=== PATIENT | female | born 1930 | race Caucasian/White ===

== ENCOUNTER 2016-04-29 13:16 | Emergency (ER) | payer MEDICARE, BC ==
[2016-04-29 13:47] VITALS: TEMP 97.4
--- NOTE | 2016-04-29 14:21 | ED ---
Extremity Problem HPI - General Chief complaint: Extremity Problem,Nontraumatic Stated complaint: Arm/Back Pain Time Seen by Provider: 04/29/16 13:58 Source: patient, RN notes reviewed Mode of arrival: ambulatory Limitations: no limitations - History of Present Illness Initial comments: 85-year-old female presents emergency Department with chief complaint of neck, shoulder and back pain. Patient states has been present for 1 month getting worse. Patient states that she saw her primary care physician yesterday who told her was arthritis and order an MRI. Patient had x-rays of the shoulder never or neck. Patient states it's worse when she turns or moves her shoulders. Patient states that she does not believe her physician and believes that it is her heart. Patient's had a history of bypass, corner stents. Patient denies chest pain denies shortness of breath. Patient denies any nausea , vomiting, fever, chills. Patient denies any trauma. - Related Data Home Medications Medication Instructions Recorded Confirmed Carvedilol [Coreg] 12.5 mg PO BID 04/29/16 04/29/16 Isosorbide Mononitrate ER [Imdur] 30 mg PO DAILY 04/29/16 04/29/16 Omeprazole [PriLOSEC] 20 mg PO DAILY 04/29/16 04/29/16 amLODIPine BESYLATE [Norvasc] 10 mg PO DAILY 04/29/16 04/29/16 traMADol HCL [Ultram] 50 mg PO BID PRN 04/29/16 04/29/16 Allergies Allergy/AdvReac Type Severity Reaction Status Date / Time No Known Allergies Allergy Verified 04/29/16 13:48 Review of Systems ROS Statement: Those systems with pertinent positive or pertinent negative responses have been documented in the HPI. ROS Other: All systems not noted in ROS Statement are negative. Past Medical History Past Medical History: Coronary Artery Disease (CAD), Hypertension, Osteoarthritis (OA) History of Any Multi-Drug Resistant Organisms: None Reported Past Surgical History: Coronary Bypass/CABG, Heart Catheterization With Stent Past Psychological History: No Psychological Hx Reported Smoking Status: Never smoker Past Alcohol Use History: None Reported Past Drug Use History: None Reported General Exam Limitations: no limitations General appearance: alert, in no apparent distress Head exam: Present: atraumatic, normocephalic, normal inspection ENT exam: Present: normal oropharynx, mucous membranes moist Neck exam: Present: normal inspection, tenderness (Tenderness over the trapezius left greater than right), full ROM (Discomfort with range of motion). Absent: meningismus, lymphadenopathy Respiratory exam: Present: normal lung sounds bilaterally, other ( sternal scar) . Absent: respiratory distress, wheezes, rales, rhonchi, stridor, chest wall tenderness Cardiovascular Exam: Present: regular rate, normal rhythm, normal heart sounds. Absent: systolic murmur, diastolic murmur, rubs, gallop, clicks GI/Abdominal exam: Present: soft, normal bowel sounds. Absent: distended, tenderness, guarding, rebound, rigid Extremities exam: Present: other (Upper extremity strength equal bilaterally 5/ 5 neurovascular intact there is pain with range of motion in bilateral shoulders ) Back exam: Present: full ROM. Absent: tenderness Course Vital Signs 04/29/16 13:41 Temperature 97.4 F L Pulse Rate 66 Respiratory 16 Rate Blood Pressure 198/85 O2 Sat by Pulse 97 Oximetry Medical Decision Making - Medical Decision Making 85-year-old female presented to emergency department for neck and back pain. This has been ongoing for 1 month. Patient saw primary care physician for in which she was diagnosed with arthritis. X-ray of the cervical spine shows moderate to severe degenerative changes. Patient was concerned about cardiac issues though EKG unchanged, troponin is negative. Return parameters discussed. Close follow-up was discussed - Lab Data Result diagrams: 04/29/16 14:23 04/29/16 14:23 Lab Results 04/29/16 04/29/16 04/29/16 Range/Units 14:23 14:23 14:23 WBC 6.8 (3.8-10.6) k/uL RBC 4.25 (3.80-5.40) m/uL Hgb 13.1 (11.4-16.0) gm/dL Hct 39.0 (34.0-46.0) % MCV 91.7 (80.0-100.0) fL MCH 30.8 (25.0-35.0) pg MCHC 33.6 (31.0-37.0) g/dL RDW 12.8 (11.5-15.5) % Plt Count 271 (150-450) k/uL Neutrophils % 63 % Lymphocytes % 22 % Monocytes % 8 % Eosinophils % 3 % Basophils % 1 % Neutrophils # 4.3 (1.3-7.7) k/uL Lymphocytes # 1.5 (1.0-4.8) k/uL Monocytes # 0.5 (0-1.0) k/uL Eosinophils # 0.2 (0-0.7) k/uL Basophils # 0.0 (0-0.2) k/uL PT (9.0-12.0) sec INR (<1.1) APTT (22.0-30.0) sec Sodium 142 (137-145) mmol/L Potassium 4.5 (3.5-5.1) mmol/L Chloride 106 (98-107) mmol/L Carbon Dioxide 22 (22-30) mmol/L Anion Gap 14 mmol/L BUN 17 (7-17) mg/dL Creatinine 0.90 (0.52-1.04) mg/dL Est GFR (MDRD) Af Amer >60 (>60 ml/min/1.73 sqM) Est GFR (MDRD) Non-Af 59 (>60 ml/min/1.73 sqM) Glucose 97 (74-99) mg/dL Calcium 9.2 (8.4-10.2) mg/dL Magnesium 2.1 (1.6-2.3) mg/dL Total Bilirubin 0.6 (0.2-1.3) mg/dL AST 21 (14-36) U/L ALT 33 (9-52) U/L Alkaline Phosphatase 95 (38-126) U/L Total Creatine Kinase 92 (30-135) U/L CK-MB (CK-2) 1.5 (0.0-2.4) ng/mL CK-MB (CK-2) Rel Index 1.6 Troponin I <0.012 (0.000-0.034) ng/mL Total Protein 7.3 (6.3-8.2) g/dL Albumin 4.1 (3.5-5.0) g/dL 04/29/16 Range/Units 14:23 WBC (3.8-10.6) k/uL RBC (3.80-5.40) m/uL Hgb (11.4-16.0) gm/dL Hct (34.0-46.0) % MCV (80.0-100.0) fL MCH (25.0-35.0) pg MCHC (31.0-37.0) g/dL RDW (11.5-15.5) % Plt Count (150-450) k/uL Neutrophils % % Lymphocytes % % Monocytes % % Eosinophils % % Basophils % % Neutrophils # (1.3-7.7) k/uL Lymphocytes # (1.0-4.8) k/uL Monocytes # (0-1.0) k/uL Eosinophils # (0-0.7) k/uL Basophils # (0-0.2) k/uL PT 10.8 (9.0-12.0) sec INR 1.1 (<1.1) APTT 19.8 L (22.0-30.0) sec Sodium (137-145) mmol/L Potassium (3.5-5.1) mmol/L Chloride (98-107) mmol/L Carbon Dioxide (22-30) mmol/L Anion Gap mmol/L BUN (7-17) mg/dL Creatinine (0.52-1.04) mg/dL Est GFR (MDRD) Af Amer (>60 ml/min/1.73 sqM) Est GFR (MDRD) Non-Af (>60 ml/min/1.73 sqM) Glucose (74-99) mg/dL Calcium (8.4-10.2) mg/dL Magnesium (1.6-2.3) mg/dL Total Bilirubin (0.2-1.3) mg/dL AST (14-36) U/L ALT (9-52) U/L Alkaline Phosphatase (38-126) U/L Total Creatine Kinase (30-135) U/L CK-MB (CK-2) (0.0-2.4) ng/mL CK-MB (CK-2) Rel Index Troponin I (0.000-0.034) ng/mL Total Protein (6.3-8.2) g/dL Albumin (3.5-5.0) g/dL 04/29/16 15:24 EKG performed at 13:56 sinus rhythm with first-degree AV block, left axis deviation, rate of 66, [place] interval 224, QRS duration 92, QT/QTC 430/450 Disposition Clinical Impression: Neck pain, Musculoskeletal pain Disposition: HOME SELF-CARE Condition: Stable Instructions: Neck Pain (ED) Additional Instructions: Please return to the Emergency Department if symptoms worsen or any other concerns. Time of Disposition: 15:26
[2016-04-29 14:34] LABS: Basophils % (A) 1 %; CH 31.6; CHCM 34.6; Eosinophils # (A) 0.2 k/uL (0-0.7); Eosinophils % (A) 3 %; HDW 2.51; HGB 13.1 gm/dL (11.4-16.0); Luc # (Auto) 0.23; Luc % (Auto) 3; Lymphocytes # (A) 1.5 k/uL (1.0-4.8); Lymphocytes % (A) 22 %; MCH 30.8 pg (25.0-35.0); MCHC 33.6 g/dL (31.0-37.0); MCV 91.7 fL (80.0-100.0); Mean Platelet Volume 7.9; Monocytes # (A) 0.5 k/uL (0-1.0); Monocytes % (A) 8 %; Neutrophils # (A) 4.3 k/uL (1.3-7.7); Neutrophils % (A) 63 %; RBC 4.25 m/uL (3.80-5.40); RDW 12.8 % (11.5-15.5); WBC 6.8 k/uL (3.8-10.6); WBC (Perox) 7.06
[2016-04-29 14:45] LABS: INR 1.1 (<1.1); Prothrombin Time 10.8 sec (9.0-12.0)
[2016-04-29 14:50] LABS: ALT 33 U/L (9-52); AST 21 U/L (14-36); Alkaline Phosphatase 95 U/L (38-126); Anion Gap 14 mmol/L; Blood Urea Nitrogen 17 mg/dL (7-17); Calcium 9.2 mg/dL (8.4-10.2); Carbon Dioxide 22 mmol/L (22-30); Chloride 106 mmol/L (98-107); Glucose 97 mg/dL (74-99); Magnesium 2.1 mg/dL (1.6-2.3); Non-African American GFR(MDRD) 59 (>60 ml/min/1.73 sqM); Potassium 4.5 mmol/L (3.5-5.1); Sodium 142 mmol/L (137-145); Total Bilirubin 0.6 mg/dL (0.2-1.3); Total Protein 7.3 g/dL (6.3-8.2)
--- NOTE | 2016-04-29 14:53 | XR ---
EXAMINATION TYPE: XR cervical spine comp DATE OF EXAM: 04/29/2016 2:46 PM CLINICAL HISTORY: pain COMPARISON: NONE TECHNIQUE: Frontal, lateral, oblique, swimmers, and open mouth view of the cervical spine are obtaine d. FINDINGS: The cervical spine is visualized in its entirety from C1 thru the top of T1 level. It is s atisfactory in alignment without evidence of acute fracture or dislocation. The pre-vertebral soft t issue appears within normal limits. Disc spaces are well preserved. The C1-C2 articulation is unremar kable on the open mouth view. The oblique images are within normal limits. Moderate to severe degene rative disc space narrowing is seen throughout. IMPRESSION: No acute fracture or dislocation is seen in the cervical spine.ICD 10 NO FRACTURE, INITI AL EVALUATION
[2016-04-29 14:55] LABS: Creatine Kinase 92 U/L (30-135)
--- NOTE | 2016-04-29 14:56 | XR ---
EXAMINATION TYPE: XR chest 2V DATE OF EXAM: 04/29/2016 2:46 PM COMPARISON: 06/23/2013 HISTORY: Shortness of breath TECHNIQUE: Frontal and lateral views of the chest are obtained. FINDINGS: Scattered senescent parenchymal changes noted. Hyperinflation compatible with COPD. No evidence for infiltrate. No evidence for atelectasis. Heart size is stable. Mediastinal structures are stable and grossly unremarkable. No evidence for hilar prominence. Degenerative changes dorsal spine. IMPRESSION: 1. No evidence for acute pulmonary disease.
[2016-04-29 14:58] LABS: Partial Thromboplastin Time 19.8 sec (22.0-30.0)
[2016-04-29 15:08] LABS: Creatine Kinase MB 1.5 ng/mL (0.0-2.4); Troponin I <0.012 ng/mL (0.000-0.034)
[2016-04-29 15:33] VITALS: BP 183/77; PULSE 62; RESP 14
== END 2016-04-29 15:38 | disposition home or self-care (01) ==
LOC: EC 13:16
DX: M54.2 Cervicalgia (principal); M54.9 Dorsalgia, unspecified; M25.512 Pain in left shoulder; M25.511 Pain in right shoulder; I10 Essential (primary) hypertension; M19.90 Unspecified osteoarthritis, unspecified site; I25.10 Atherosclerotic heart disease of native coronary artery without angina pectoris; Z95.5 Presence of coronary angioplasty implant and graft; Z95.1 Presence of aortocoronary bypass graft; Z79.899 Other long term (current) drug therapy
CPT/HCPCS: 36415; 71020; 72050; 80053; 82550; 82553; 83735; 84484; 85025; 85610; 85730; 93005; 99284

== ENCOUNTER 2016-12-13 10:20 | Inpatient (IN) | payer MEDICARE, BC ==
[2016-12-13] MEDS ORDERED: SODIUM CHLORIDE 0.9% 500 ML IV STA (10:42)
[2016-12-13] MEDS ORDERED: SODIUM CHLORIDE 0.9% 1,000 ML IV STA (10:42)
[2016-12-13] MEDS ORDERED: HYDROmorphone 1 MG/ML 1 ML SYRINGE IVP STA (10:42)
[2016-12-13] MEDS ORDERED: ACETAMINOPHEN TAB 500 MG TAB PO STA (10:44)
[2016-12-13] MEDS ORDERED: LEVOFLOXACIN 750MG-D5W PMX 750 MG in DEXTROSE/WATER 1 150ML.BAG IVPB STA (10:58)
--- NOTE | 2016-12-13 11:14 | ED ---
General Adult HPI - General Chief complaint: Back Pain/Injury Stated complaint: Back Pain Time Seen by Provider: 12/13/16 10:23 Source: patient, EMS Mode of arrival: EMS Limitations: no limitations - History of Present Illness Initial comments: This 86-year-old white female presents with a complaint of some pain throughout her back and neck region. She states that it started yesterday. She also feels very weak. She essentially was unable to stand or walk today and is brought in via EMS. She denies any fevers at home but does have a temperature in the emergency department. She relates a recent history over this past month of having strep throat as well as a kidney infection. She just got off of cipro approximately one week ago after a 10 day course for the kidney/bladder infection. She states that she has taken an occasional aspirin for the pain but denies any other pain medications. She denies any frequency urgency or dysuria. She denies any abdominal pain. There is no shortness of breath or chest pain. She does relate having an occasional cough which is nonproductive. No other complaints or modifying factors. - Related Data Home Medications Medication Instructions Recorded Confirmed Carvedilol [Coreg] 12.5 mg PO BID 04/29/16 12/13/16 Isosorbide Mononitrate ER [Imdur] 30 mg PO DAILY 04/29/16 12/13/16 Omeprazole [PriLOSEC] 20 mg PO BID 04/29/16 12/13/16 amLODIPine BESYLATE [Norvasc] 10 mg PO DAILY 04/29/16 12/13/16 Aspirin EC [Ecotrin Low Dose] 81 mg PO DAILY 12/13/16 12/13/16 Clopidogrel [Plavix] 75 mg PO DAILY 12/13/16 12/13/16 Ezetimibe [Zetia] 10 mg PO DAILY 12/13/16 12/13/16 Lisinopril [Prinivil] 10 mg PO BID 12/13/16 12/13/16 Allergies Allergy/AdvReac Type Severity Reaction Status Date / Time sulfamethoxazole Allergy Rash/Hives Verified 12/13/16 10:31 [From Bactrim] trimethoprim [From Bactrim] Allergy Rash/Hives Verified 12/13/16 10:31 amoxicillin [From Augmentin] AdvReac Nausea & Verified 12/13/16 10:31 Vomiting & Diarrhea clavulanic acid AdvReac Nausea & Verified 12/13/16 10:31 [From Augmentin] Vomiting & Diarrhea Review of Systems ROS Statement: Those systems with pertinent positive or pertinent negative responses have been documented in the HPI. ROS Other: All systems not noted in ROS Statement are negative. Past Medical History Past Medical History: Coronary Artery Disease (CAD), Hypertension, Osteoarthritis (OA) Additional Past Medical History / Comment(s): uti History of Any Multi-Drug Resistant Organisms: None Reported Past Surgical History: Coronary Bypass/CABG, Heart Catheterization With Stent Additional Past Surgical History / Comment(s): femoral popliteal bypass both legs Past Psychological History: No Psychological Hx Reported Smoking Status: Never smoker Past Alcohol Use History: None Reported Past Drug Use History: None Reported General Exam - General Exam Comments Initial Comments: GENERAL: The patient is well nourished and well hydrated. VITAL SIGNS: Heart rate, blood pressure, respiratory rate reviewed as recorded in nurse's notes. EYES: Pupils are round and reactive. Extraocular movements are intact. No conjunctival / lid redness or swelling. ENT: No external evidence of injury, swelling, or ecchymosis. Airway is patent. Throat is clear. NECK: There is mild tenderness to the paracervical musculature. She has some minimal pain with range of motion of neck. No meningeal signs. No swelling or evidence of injury. No subcutaneous emphysema. Trachea is midline. No thyroid mass. HEART: Regular rate and rhythm. Good peripheral pulses. LUNGS/CHEST: Breath sounds clear and equal bilaterally. No rales, rhonchi, or wheezes. No ecchymosis, subcutaneous emphysema, or tenderness. ABDOMEN: Abdomen soft without tenderness. No palpable masses or organomegaly. No peritoneal signs. No abdominal wall swelling or ecchymosis. EXTREMITIES: No extremity tenderness. Normal muscle tone and function. There is some mild tenderness throughout the thoracic and lumbar para musculature. NEUROLOGIC: Sensation is grossly intact. Cranial nerve exam reveals face is symmetrical, tongue is midline, speech is clear. SKIN: No abrasions or ecchymosis is noted. No induration or masses noted. PSYCHIATRIC: Alert and oriented. Appropriate behavior and judgment. Limitations: no limitations Course Vital Signs 12/13/16 12/13/16 12/13/16 10:23 11:23 12:16 Temperature 100.8 F H 100.1 F H Pulse Rate 89 83 75 Respiratory 20 17 17 Rate Blood Pressure 159/115 196/81 135/60 O2 Sat by Pulse 92 L 95 95 Oximetry Medical Decision Making - Medical Decision Making The patient was seen and examined. All diagnostics were reviewed. An IV is started and she does receive 0.5 mg of Dilaudid for pain. She also receives Tylenol for the fever as well as Levaquin empirically. The EKG shows a normal sinus rhythm with a first-degree AV block. There is no acute ST T-wave changes other than some mild T-wave abnormalities in leads 3 and aVF. The [place] interval is 216, QRS duration is 94, and QTC intervals 451. She received some fluid hydration. The chest x-ray did not show any evidence of pneumonia or acute process. The laboratory is reviewed and it does appear that she has a leukocytosis. Her urine was negative for a urinary tract infection. The possibility of still having a pyelonephritis certainly is likely. She also may have a degree of a bronchitis. Nevertheless, she is significantly weak to the point that she cannot ambulate and it is felt as though she would require admission to the hospital. She is agreeable. Case is discussed with internal medicine and they're agreeable to admission. - Lab Data Result diagrams: 12/13/16 10:55 12/13/16 10:55 Lab Results 12/13/16 12/13/16 12/13/16 Range/Units 10:55 10:55 10:55 WBC 13.4 H (3.8-10.6) k/uL RBC 4.24 (3.80-5.40) m/uL Hgb 13.4 (11.4-16.0) gm/dL Hct 38.5 (34.0-46.0) % MCV 90.9 (80.0-100.0) fL MCH 31.5 (25.0-35.0) pg MCHC 34.7 (31.0-37.0) g/dL RDW 13.4 (11.5-15.5) % Plt Count 283 (150-450) k/uL Neutrophils % 77 % Lymphocytes % 10 % Monocytes % 9 % Eosinophils % 0 % Basophils % 1 % Neutrophils # 10.2 H (1.3-7.7) k/uL Lymphocytes # 1.3 (1.0-4.8) k/uL Monocytes # 1.2 H (0-1.0) k/uL Eosinophils # 0.0 (0-0.7) k/uL Basophils # 0.1 (0-0.2) k/uL PT (9.0-12.0) sec INR (<1.2) APTT (22.0-30.0) sec Sodium 138 (137-145) mmol/L Potassium 3.8 (3.5-5.1) mmol/L Chloride 106 (98-107) mmol/L Carbon Dioxide 21 L (22-30) mmol/L Anion Gap 11 mmol/L BUN 15 (7-17) mg/dL Creatinine 0.80 (0.52-1.04) mg/dL Est GFR (MDRD) Af Amer >60 (>60 ml/min/1.73 sqM) Est GFR (MDRD) Non-Af >60 (>60 ml/min/1.73 sqM) Glucose 161 H (74-99) mg/dL Calcium 9.2 (8.4-10.2) mg/dL Total Bilirubin 0.9 (0.2-1.3) mg/dL AST 16 (14-36) U/L ALT 24 (9-52) U/L Alkaline Phosphatase 92 (38-126) U/L Total Creatine Kinase 118 (30-135) U/L CK-MB (CK-2) 0.7 (0.0-2.4) ng/mL CK-MB (CK-2) Rel Index 0.6 Troponin I <0.012 (0.000-0.034) ng/mL Total Protein 7.1 (6.3-8.2) g/dL Albumin 4.0 (3.5-5.0) g/dL Urine Color Urine Appearance (Clear) Urine pH (5.0-8.0) Ur Specific [place] (1.001-1.035) Urine Protein (Negative) Urine Glucose (UA) (Negative) Urine Ketones (Negative) Urine Blood (Negative) Urine Nitrite (Negative) Urine Bilirubin (Negative) Urine Urobilinogen (<2.0) mg/dL Ur Leukocyte Esterase (Negative) Urine RBC (0-5) /hpf Urine WBC (0-5) /hpf Ur Squamous Epith Cells (0-4) /hpf Urine Mucus (None) /hpf 12/13/16 12/13/16 Range/Units 10:55 11:43 WBC (3.8-10.6) k/uL RBC (3.80-5.40) m/uL Hgb (11.4-16.0) gm/dL Hct (34.0-46.0) % MCV (80.0-100.0) fL MCH (25.0-35.0) pg MCHC (31.0-37.0) g/dL RDW (11.5-15.5) % Plt Count (150-450) k/uL Neutrophils % % Lymphocytes % % Monocytes % % Eosinophils % % Basophils % % Neutrophils # (1.3-7.7) k/uL Lymphocytes # (1.0-4.8) k/uL Monocytes # (0-1.0) k/uL Eosinophils # (0-0.7) k/uL Basophils # (0-0.2) k/uL PT 11.1 (9.0-12.0) sec INR 1.1 (<1.2) APTT 24.1 (22.0-30.0) sec Sodium (137-145) mmol/L Potassium (3.5-5.1) mmol/L Chloride (98-107) mmol/L Carbon Dioxide (22-30) mmol/L Anion Gap mmol/L BUN (7-17) mg/dL Creatinine (0.52-1.04) mg/dL Est GFR (MDRD) Af Amer (>60 ml/min/1.73 sqM) Est GFR (MDRD) Non-Af (>60 ml/min/1.73 sqM) Glucose (74-99) mg/dL Calcium (8.4-10.2) mg/dL Total Bilirubin (0.2-1.3) mg/dL AST (14-36) U/L ALT (9-52) U/L Alkaline Phosphatase (38-126) U/L Total Creatine Kinase (30-135) U/L CK-MB (CK-2) (0.0-2.4) ng/mL CK-MB (CK-2) Rel Index Troponin I (0.000-0.034) ng/mL Total Protein (6.3-8.2) g/dL Albumin (3.5-5.0) g/dL Urine Color Yellow Urine Appearance Clear (Clear) Urine pH 6.5 (5.0-8.0) Ur Specific [place] 1.017 (1.001-1.035) Urine Protein 1+ H (Negative) Urine Glucose (UA) Negative (Negative) Urine Ketones Negative (Negative) Urine Blood Small H (Negative) Urine Nitrite Negative (Negative) Urine Bilirubin Negative (Negative) Urine Urobilinogen <2.0 (<2.0) mg/dL Ur Leukocyte Esterase Negative (Negative) Urine RBC 7 H (0-5) /hpf Urine WBC <1 (0-5) /hpf Ur Squamous Epith Cells 1 (0-4) /hpf Urine Mucus Rare H (None) /hpf Disposition Clinical Impression: Fever, Weakness, Myalgia, Hypertension, Pyelonephritis, Bronchitis, Inability to walk, Hypoxia, Dehydration Disposition: ADMITTED IP TO [facility] Condition: Fair Referrals: Sirisha Carlin MD [Primary Care Provider] - 1-2 days Time of Disposition: 12:47 Decision Date: 12/13/16 Decision Time: 12:47
[2016-12-13 11:17] LABS: Basophils # (A) 0.1 k/uL (0-0.2); Basophils % (A) 1 %; CH 32.4; CHCM 35.8; Eosinophils % (A) 0 %; HCT 38.5 % (34.0-46.0); HDW 2.32; HGB 13.4 gm/dL (11.4-16.0); Luc # (Auto) 0.55; Luc % (Auto) 4; Lymphocytes # (A) 1.3 k/uL (1.0-4.8); Lymphocytes % (A) 10 %; MCH 31.5 pg (25.0-35.0); MCHC 34.7 g/dL (31.0-37.0); MCV 90.9 fL (80.0-100.0); Mean Platelet Volume 7.7; Monocytes # (A) 1.2 k/uL (0-1.0); Monocytes % (A) 9 %; Neutrophils # (A) 10.2 k/uL (1.3-7.7); Neutrophils % (A) 77 %; RBC 4.24 m/uL (3.80-5.40); RDW 13.4 % (11.5-15.5); WBC 13.4 k/uL (3.8-10.6); WBC (Perox) 13.22
[2016-12-13 11:28] LABS: INR 1.1 (<1.2); Partial Thromboplastin Time 24.1 sec (22.0-30.0); Prothrombin Time 11.1 sec (9.0-12.0)
--- NOTE | 2016-12-13 11:33 | XR ---
EXAMINATION TYPE: XR chest 2V DATE OF EXAM: 12/13/2016 COMPARISON: Prior chest x-ray 04/29/2016 HISTORY: Weakness, neck and back pain, coronary artery disease TECHNIQUE: Frontal and lateral views of the chest are obtained. FINDINGS: Patient is post median sternotomy. Suspect scoliotic curvature within the thoracic spine. No airspace disease, pneumothorax, or pleural effusion evident. Heart size is stable and borderline e nlarged. Appearance of the tracheal deviation may be due to underlying scoliosis. Left hemidiaphragm is somewhat elevated. Prominent lung volume may be indicative of underlying COPD. Heart appears somew hat dense on the lateral view possibly due to orientation. IMPRESSION: No acute cardiopulmonary process. Additional findings above.
[2016-12-13 11:34] LABS: ALT 24 U/L (9-52); AST 16 U/L (14-36); Alkaline Phosphatase 92 U/L (38-126); Anion Gap 11 mmol/L; Blood Urea Nitrogen 15 mg/dL (7-17); Calcium 9.2 mg/dL (8.4-10.2); Carbon Dioxide 21 mmol/L (22-30); Chloride 106 mmol/L (98-107); Glucose 161 mg/dL (74-99); Non-African American GFR(MDRD) >60 (>60 ml/min/1.73 sqM); Potassium 3.8 mmol/L (3.5-5.1); Sodium 138 mmol/L (137-145); Total Bilirubin 0.9 mg/dL (0.2-1.3); Total Protein 7.1 g/dL (6.3-8.2)
[2016-12-13 11:36] LABS: Creatine Kinase 118 U/L (30-135)
[2016-12-13 11:49] LABS: Creatine Kinase MB 0.7 ng/mL (0.0-2.4); Troponin I <0.012 ng/mL (0.000-0.034)
[2016-12-13 12:04] LABS: Appearance,Urine Clear (Clear); Bilirubin,Urine Negative (Negative); Glucose,Urine (UA) Negative (Negative); Ketones,Urine Negative (Negative); Leukocyte Esterase,Urine Negative (Negative); Mucus,Urine Rare /hpf; Nitrite,Urine Negative (Negative); PH, Urine 6.5 (5.0-8.0); Particle Count 4693; Protein,Urine 1+ (Negative); RBC,Urine 7 /hpf (0-5); Specific Gravity,Urine 1.017 (1.001-1.035); Squamous Epithelial Cell,Urine 1 /hpf (0-4); UA Billing (MACRO vs. MICRO) MICRO; Urobilinogen,Urine <2.0 mg/dL (<2.0); WBC,Urine <1 /hpf (0-5)
[2016-12-13] MEDS ORDERED: NALOXONE 0.4 MG/ML 1 ML VIAL IV PRN (12:48)
[2016-12-13] MEDS ORDERED: HYDROmorphone 1 MG/ML 1 ML SYRINGE IV PRN (12:48)
[2016-12-13] MEDS ORDERED: ONDANSETRON 4 MG/2 ML VIAL IVP PRN (12:48)
[2016-12-13] MEDS ORDERED: ACETAMINOPHEN TAB 325 MG TAB PO PRN (12:48)
[2016-12-13] MEDS ORDERED: KETOROLAC 30 MG/ML 1 ML VIAL IVP STA (12:54)
[2016-12-13] MEDS: CARVEDILOL 12.5 MG TAB PO SCH (17:26)
[2016-12-13] MEDS: PANTOPRAZOLE 40 MG TABLET PO SCH (17:26)
--- NOTE | 2016-12-13 18:32 | P.HPIM ---
History of Present Illness H&P Date: 12/13/16 Chief Complaint: Generalized weakness and right flank pain This 86-year-old female that presents to the hospital with progressive worsening weakness. Patient apparently was noted to have clinical pyelonephritis due to flank pain and a UA that was abnormal with other symptoms patient was treated with ciprofloxacin for 10 days. Patient's last dose was 2 days prior to the day of admission. Over the period of her treatment patient has not been active and has been bedridden. At this time there is some concern for patient continued to have symptoms of flank pain. Denies having any nausea vomiting abdominal pain other than the flank pain is described no urinary urgency or frequency is discussed. Her graft patient apparently has also been unsteady for the last 2 days and scaling the hospital seeking for further help. UA in the emergency room was not impressive. EKG shows sinus rhythm with first AV block and Q waves in the anteroseptal leads. At the time of my evaluation patient states that she is slightly feeling better. States that her oral intake has also been diminished over the same period of time Denies having any diarrhea lower extremity edema chest pain difficulty breathing headaches blurry vision and nausea and vomiting Review of systems 14 point review of systems done nonpertinent was mentionable Physical exam Gen. appearance oriented 3 in no distress Neck is supple no JVD Lungs good air entry crackles are appreciated at the left base. Heart S1-S2 heard regular rate and rhythm no murmurs appreciated Abdomen is soft flank pain is appreciated on the right side no suprapubic tenderness noted no guarding rigidity no organomegaly Neurologically cranial nerves II-12 grossly intact no focal motor or sensory deficits noted Skin no abnormalities appreciated Assessment and plan #1 sepsis likely due to pyelonephritis, however patient's urinalysis sterile as patient was partially treated. However also suspect an abnormality in the left lower lobe of the lung. No. 2 history of CAD #3 essential hypertension #4 deconditioning #5 dyslipidemia Plan We'll hydrate the patient. Repeat a chest x-ray in the a.m. Continue with IV Levaquin DVT prophylaxis PT OT consultation. Encourage ambulation and activity Safety assessment will likely need at least 48 hours of assessment inpatient. Past Medical History Past Medical History: Coronary Artery Disease (CAD), Chest Pain / Angina, CVA/ TIA, GERD/Reflux, Hyperlipidemia, Hypertension, Myocardial Infarction ([place]), Osteoarthritis (OA), Pneumonia Additional Past Medical History / Comment(s): uti, tia age 50,pvd,bronchitis, sinus p[roblems,constipation,stomach ulcers years ago, incont of urine, chronic back pain. Last Myocardial Infarction Date:: 2011 History of Any Multi-Drug Resistant Organisms: None Reported Past Surgical History: Appendectomy, Coronary Bypass/CABG, Heart Catheterization , Heart Catheterization With Stent Additional Past Surgical History / Comment(s): marilou illiac stents 2013(per [facility]), 2 cardiac stents, marilou cataracts,daughter stated pt had a 6 vessel cabg 2010, Past Anesthesia/Blood Transfusion Reactions: No Reported Reaction Date of Last Stent Placement:: 2012 Smoking Status: Never smoker - Past Family History Mother Family Medical History: Cancer Father Family Medical History: Myocardial Infarction ([place]) Additional Family Medical History / Comment(s): lead poisoning from painting cars Medications and Allergies Home Medications Medication Instructions Recorded Confirmed Type Carvedilol [Coreg] 12.5 mg PO BID 04/29/16 12/13/16 History Isosorbide Mononitrate ER [Imdur] 30 mg PO DAILY 04/29/16 12/13/16 History Omeprazole [PriLOSEC] 20 mg PO BID 04/29/16 12/13/16 History amLODIPine BESYLATE [Norvasc] 10 mg PO DAILY 04/29/16 12/13/16 History Aspirin EC [Ecotrin Low Dose] 81 mg PO DAILY 12/13/16 12/13/16 History Clopidogrel [Plavix] 75 mg PO DAILY 12/13/16 12/13/16 History Ezetimibe [Zetia] 10 mg PO DAILY 12/13/16 12/13/16 History Lisinopril [Prinivil] 10 mg PO BID 12/13/16 12/13/16 History Allergies Allergy/AdvReac Type Severity Reaction Status Date / Time sulfamethoxazole Allergy Rash/Hives Verified 12/13/16 10:31 [From Bactrim] trimethoprim [From Bactrim] Allergy Rash/Hives Verified 12/13/16 10:31 amoxicillin [From Augmentin] AdvReac Nausea & Verified 12/13/16 10:31 Vomiting & Diarrhea clavulanic acid AdvReac Nausea & Verified 12/13/16 10:31 [From Augmentin] Vomiting & Diarrhea Physical Exam Vitals: Vital Signs Temp Pulse Pulse Resp BP BP Pulse Ox 12/13/16 16:33 66 18 12/13/16 14:51 97.1 F L 66 18 118/58 96 12/13/16 13:00 100.4 F H 79 19 119/54 95 12/13/16 12:16 100.1 F H 75 17 135/60 95 12/13/16 11:23 83 17 196/81 95 12/13/16 10:23 100.8 F H 89 20 159/115 92 L Intake and Output 12/13/16 12/13/16 12/13/16 06:59 14:59 22:59 Intake Total 1350 Balance 1350 Intake: Intake, IV Titration 1250 Amount Levofloxacin 750Mg-D5w 250 Pmx 750 mg In Dextrose/ Water 1 150ml.bag @ 100 mls/hr IVPB DAILY [facility] Rx# :[id number] Sodium Chloride 0.9% 1, 1000 000 ml @ 100 mls/hr IV . Q10H STA Rx#:[id number] Oral 100 Other: # Voids 2 Weight 77.111 kg 77.111 kg Patient Weight 12/14/16 06:59 Weight 77.111 kg Results CBC & Chem 7: 12/13/16 10:55 12/13/16 10:55 Labs: Abnormal Lab Results - Last 24 Hours (Table) 12/13/16 12/13/16 12/13/16 Range/Units 10:55 10:55 11:43 WBC 13.4 H (3.8-10.6) k/uL Neutrophils # 10.2 H (1.3-7.7) k/uL Monocytes # 1.2 H (0-1.0) k/uL Carbon Dioxide 21 L (22-30) mmol/L Glucose 161 H (74-99) mg/dL Urine Protein 1+ H (Negative) Urine Blood Small H (Negative) Urine RBC 7 H (0-5) /hpf Urine Mucus Rare H (None) /hpf Microbiology - Last 24 Hours (Table) 12/13/16 11:43 Urine Culture - Preliminary Urine,Voided
[2016-12-13] MEDS: LISINOPRIL 10 MG TAB PO SCH (21:04)
[2016-12-13] MEDS: HYDROcodone/APAP 5-325MG 1 EACH TAB PO PRN (21:04)
--- NOTE | 2016-12-14 07:28 | XR ---
EXAMINATION TYPE: XR chest 2V DATE OF EXAM: 12/14/2016 COMPARISON: NONE INDICATION: CHF TECHNIQUE: Frontal and lateral views of the chest are obtained. FINDINGS: The heart size is borderline prominent. The pulmonary vasculature is normal. The lungs are clear. Sternotomy wires are present from previous CABG IMPRESSION: 1. Mild cardiomegaly
[2016-12-14 07:45] LABS: ALT 26 U/L (9-52); AST 14 U/L (14-36); Alkaline Phosphatase 69 U/L (38-126); Anion Gap 8 mmol/L; Blood Urea Nitrogen 15 mg/dL (7-17); Calcium 8.2 mg/dL (8.4-10.2); Carbon Dioxide 21 mmol/L (22-30); Chloride 109 mmol/L (98-107); Glucose 95 mg/dL (74-99); Non-African American GFR(MDRD) >60 (>60 ml/min/1.73 sqM); Sodium 138 mmol/L (137-145); Total Bilirubin 0.5 mg/dL (0.2-1.3); Total Protein 6.1 g/dL (6.3-8.2)
[2016-12-14 08:31] LABS: Aty Lym Flag Slight; CH 32.2; CHCM 34.3; HCT 34.9 % (34.0-46.0); HDW 2.29; HGB 11.7 gm/dL (11.4-16.0); MCH 31.5 pg (25.0-35.0); MCHC 33.5 g/dL (31.0-37.0); MCV 94.1 fL (80.0-100.0); Mean Platelet Volume 8.5; RDW 13.6 % (11.5-15.5); WBC 9.7 k/uL (3.8-10.6); WBC (Perox) 9.83
[2016-12-14] MEDS ORDERED: LEVOFLOXACIN 750MG-D5W PMX 750 MG in DEXTROSE/WATER 1 150ML.BAG IVPB SCH (09:00)
[2016-12-14] MEDS: CLOPIDOGREL 75 MG TAB PO SCH (09:01)
[2016-12-14] MEDS: ENOXAPARIN 40 MG/0.4 ML SYRINGE SQ SCH (09:01)
[2016-12-14] MEDS: amLODIPine 10 MG TAB PO SCH (09:01)
[2016-12-14] MEDS: LISINOPRIL 10 MG TAB PO SCH ×2 (09:01→20:26)
[2016-12-14] MEDS: PANTOPRAZOLE 40 MG TABLET PO SCH ×2 (09:01→17:28)
[2016-12-14] MEDS: ASPIRIN 81 MG CHEW PO SCH (09:01)
[2016-12-14] MEDS: EZETIMIBE 10 MG TAB PO SCH (09:01)
[2016-12-14] MEDS: CARVEDILOL 12.5 MG TAB PO SCH ×2 (09:01→17:28)
[2016-12-14] MEDS: ISOSORBIDE MONONITRATE ER 30 MG TAB.ER.24H PO SCH (09:01)
[2016-12-14] MEDS: HYDROcodone/APAP 5-325MG 1 EACH TAB PO PRN ×2 (09:19→22:28)
[2016-12-14 10:57] LABS: Add Differential Manual Differential
[2016-12-14 10:59] LABS: Manual Review Performed; Nucleated Red Blood Cells 0 /100 WBC (0-0); Total Cells Counted 100
--- NOTE | 2016-12-14 18:47 | P.PN ---
Subjective This 86-year-old female that presents to the hospital with progressive worsening weakness. Patient apparently was noted to have clinical pyelonephritis due to flank pain and a UA that was abnormal with other symptoms patient was treated with ciprofloxacin for 10 days. Patient's last dose was 2 days prior to the day of admission. Over the period of her treatment patient has not been active and has been bedridden. At this time there is some concern for patient continued to have symptoms of flank pain. Denies having any nausea vomiting abdominal pain other than the flank pain is described no urinary urgency or frequency is discussed. Her graft patient apparently has also been unsteady for the last 2 days and scaling the hospital seeking for further help. UA in the emergency room was not impressive. EKG shows sinus rhythm with first AV block and Q waves in the anteroseptal leads. At the time of my evaluation patient states that she is slightly feeling better. States that her oral intake has also been diminished over the same period of time Denies having any diarrhea lower extremity edema chest pain difficulty breathing headaches blurry vision and nausea and vomiting 12/14/2016 White count has normalized. Repeat chest x-ray does not show an underlying pneumonic infiltrate Patient states that she feels slightly better however continues to have generalized aches. Review of systems 14 point review of systems done nonpertinent was mentionable Physical exam Gen. appearance oriented 3 in no distress Neck is supple no JVD Lungs good air movement clear to auscultation no rhonchi or wheezing or crackles. Heart S1-S2 heard regular rate and rhythm no murmurs appreciated Abdomen is soft flank pain is appreciated on the right side no suprapubic tenderness noted no guarding rigidity no organomegaly Neurologically cranial nerves II-12 grossly intact no focal motor or sensory deficits noted Skin no abnormalities appreciated Assessment and plan #1 sepsis likely due to pyelonephritis, however patient's urinalysis sterile as patient was partially treated. However also suspect an abnormality in the left lower lobe of the lung. No. 2 history of CAD #3 essential hypertension #4 deconditioning #5 dyslipidemia Plan Continue hydration we'll obtain phosphorus and magnesium levels in the a.m. DVT prophylaxis PT OT consultation. Encourage ambulation and activity Objective - Vital Signs Vital signs: Vital Signs Temp 98.1 F 12/14/16 16:04 Pulse 65 12/14/16 16:04 Resp 16 12/14/16 16:04 BP 120/72 12/14/16 16:04 Pulse Ox 96 12/14/16 16:04 Intake & Output 12/13/16 12/14/16 12/14/16 18:59 06:59 18:59 Intake Total 1350 2300 Balance 1350 2300 Weight 77.111 kg Intake: Intake, IV Titration 1250 700 Amount Levofloxacin 750Mg-D5w 250 Pmx 750 mg In Dextrose/ Water 1 150ml.bag @ 100 mls/hr IVPB DAILY [facility] Rx# :[id number] Levofloxacin 750Mg-D5w 100 Pmx 750 mg In Dextrose/ Water 1 150ml.bag @ 100 mls/hr IVPB Q48H [facility] Rx#: [id number] Sodium Chloride 0.9% 1, 1000 600 000 ml @ 100 mls/hr IV . Q10H [facility] Rx#:[id number] Oral 100 1600 Other: Voiding Method Bedpan Diaper # Voids 2 1 3 - Labs CBC & Chem 7: 12/14/16 07:03 12/14/16 07:03 Labs: Abnormal Lab Results - Last 24 Hours (Table) 12/14/16 12/14/16 Range/Units 07:03 07:03 RBC 3.70 L (3.80-5.40) m/uL Chloride 109 H (98-107) mmol/L Carbon Dioxide 21 L (22-30) mmol/L Calcium 8.2 L (8.4-10.2) mg/dL Total Protein 6.1 L (6.3-8.2) g/dL Albumin 3.2 L (3.5-5.0) g/dL Microbiology - Last 24 Hours (Table) 12/13/16 10:55 Blood Culture - Preliminary Blood No Growth after 24 hours 12/13/16 11:43 Urine Culture - Preliminary Urine,Voided
[2016-12-15] MEDS: CARVEDILOL 12.5 MG TAB PO SCH ×2 (07:54→17:18)
[2016-12-15] MEDS: PANTOPRAZOLE 40 MG TABLET PO SCH ×2 (08:04→17:18)
[2016-12-15] MEDS: ASPIRIN 81 MG CHEW PO SCH (08:04)
[2016-12-15] MEDS: ENOXAPARIN 40 MG/0.4 ML SYRINGE SQ SCH (08:04)
[2016-12-15] MEDS: ISOSORBIDE MONONITRATE ER 30 MG TAB.ER.24H PO SCH (08:04)
[2016-12-15] MEDS: EZETIMIBE 10 MG TAB PO SCH (08:04)
[2016-12-15] MEDS: LISINOPRIL 10 MG TAB PO SCH ×2 (08:04→21:16)
[2016-12-15] MEDS: CLOPIDOGREL 75 MG TAB PO SCH (08:04)
[2016-12-15] MEDS: amLODIPine 10 MG TAB PO SCH (08:04)
[2016-12-15 08:50] LABS: ALT 30 U/L (9-52); AST 18 U/L (14-36); Alkaline Phosphatase 77 U/L (38-126); Anion Gap 13 mmol/L; Bilirubin, Delta 0.2 mg/dL (0.0-0.2); Blood Urea Nitrogen 13 mg/dL (7-17); Calcium 8.7 mg/dL (8.4-10.2); Carbon Dioxide 19 mmol/L (22-30); Chloride 106 mmol/L (98-107); Creatine Kinase 81 U/L (30-135); Glucose 112 mg/dL (74-99); Non-African American GFR(MDRD) >60 (>60 ml/min/1.73 sqM); Phosphorous 3.3 mg/dL (2.5-4.5); Potassium 4.2 mmol/L (3.5-5.1); Sodium 138 mmol/L (137-145); Total Bilirubin 0.5 mg/dL (0.2-1.3); Total Protein 6.7 g/dL (6.3-8.2)
--- NOTE | 2016-12-15 12:46 | ECHOF ---
Referral Reason:a-fib MEASUREMENTS -------- HEIGHT: 165.1 cm WEIGHT: 72.6 kg BP: 129/80 IVSd: 1.0 cm (0.6 - 1.1) LVIDd: 3.5 cm (3.9 - 5.3) LVPWd: 1.2 cm (0.6 - 1.1) IVSs: 1.7 cm LVIDs: 1.5 cm LVPWs: 2.0 cm Ao Diam: 3.4 cm (2.0 - 3.7) AV Cusp: 1.8 cm (1.5 - 2.6) LA Diam: 4.2 cm (2.7 - 3.8) MV EXCURSION: 11.800 mm (> 18.000) MV EF SLOPE: 35 mm/s (70 - 150) EPSS: 0.4 cm MV E Ted: 0.82 m/s MV DecT: 211 ms MV A Ted: 0.80 m/s MV E/A Ratio: 1.01 AR PHT: 358 ms RAP: 5.00 mmHg RVSP: 14.52 mmHg FINDINGS -------- Atrial fibrillation. This was a technically adequate study. There is mild concentric left ventricular hypertrophy. Overall left ventricular systolic function is normal with, an EF between 55 - 60 %. Septal wall motion is delayed and consistent with prior cardiac surgery. The right ventricle is normal in size and function. The left atrium is mildly dilated. The right atrium is normal in size. Aortic valve is trileaflet and is mildly thickened. There is mild aortic regurgitation. The mitral valve leaflets are mildly thickened. Mild mitral annular calcification present. There is trace mitral regurgitation. Trace tricuspid regurgitation present. The right ventricular systolic pressure, as measured by Doppler, is 14.52mmHg. Pulmonic valve appears structurally normal. The aortic root size is normal. The pericardium is normal. CONCLUSIONS -------- 1. Atrial fibrillation. 2. There is mild aortic regurgitation. 3. The mitral valve leaflets are mildly thickened. 4. Mild mitral annular calcification present. 5. There is trace mitral regurgitation. 6. Trace tricuspid regurgitation present. 7. The right ventricular systolic pressure, as measured by Doppler, is 14.52mmHg. 8. Pulmonic valve appears structurally normal. 9. The aortic root size is normal. 10. The pericardium is normal. 11. This was a technically adequate study. 12. There is mild concentric left ventricular hypertrophy. 13. Overall left ventricular systolic function is normal with, an EF between 55 - 60 %. 14. Septal wall motion is delayed and consistent with prior cardiac surgery. 15. The right ventricle is normal in size and function. 16. The left atrium is mildly dilated. 17. The right atrium is normal in size. 18. Aortic valve is trileaflet and is mildly thickened. EMERGENCY PLANNING AND RESPONSE MANAGER: Katherine Contreras RDCS
[2016-12-15 15:04] VITALS: RESP 20
--- NOTE | 2016-12-15 17:46 | P.PN ---
Subjective This 86-year-old female that presents to the hospital with progressive worsening weakness. Patient apparently was noted to have clinical pyelonephritis due to flank pain and a UA that was abnormal with other symptoms patient was treated with ciprofloxacin for 10 days. Patient's last dose was 2 days prior to the day of admission. Over the period of her treatment patient has not been active and has been bedridden. At this time there is some concern for patient continued to have symptoms of flank pain. Denies having any nausea vomiting abdominal pain other than the flank pain is described no urinary urgency or frequency is discussed. Her graft patient apparently has also been unsteady for the last 2 days and scaling the hospital seeking for further help. UA in the emergency room was not impressive. EKG shows sinus rhythm with first AV block and Q waves in the anteroseptal leads. At the time of my evaluation patient states that she is slightly feeling better. States that her oral intake has also been diminished over the same period of time Denies having any diarrhea lower extremity edema chest pain difficulty breathing headaches blurry vision and nausea and vomiting 12/14/2016 White count has normalized. Repeat chest x-ray does not show an underlying pneumonic infiltrate Patient states that she feels slightly better however continues to have generalized aches. 12/15/2016 He shouldn't appears to be in better spirits. However apparently patient went into a brief episode of atrial fibrillation with rapid ventricular rate. Patient denies feeling any chest pain palpitations at that time however returned to normal sinus rhythm without any intervention Review of systems 14 point review of systems done nonpertinent was mentionable Physical exam Gen. appearance oriented 3 in no distress Neck is supple no JVD Lungs good air movement clear to auscultation no rhonchi or wheezing or crackles. Heart S1-S2 heard regular rate and rhythm no murmurs appreciated Abdomen is soft flank pain is appreciated on the right side no suprapubic tenderness noted no guarding rigidity no organomegaly Neurologically cranial nerves II-12 grossly intact no focal motor or sensory deficits noted Skin no abnormalities appreciated Assessment and plan #1 sepsis likely due to pyelonephritis, however patient's urinalysis sterile as patient was partially treated. However also suspect an abnormality in the left lower lobe of the lung. No. 2 history of CAD #3 essential hypertension #4 deconditioning #5 dyslipidemia #6 new-onset with rapid ventricular rate currently in normal sinus rhythm Plan Continue hydration we'll obtain phosphorus and magnesium levels in the a.m. DC Plavix patient will be started on eliquis dose adjusted to her age and aspirin DVT prophylaxis PT OT consultation. Encourage ambulation and activity Discharge to halfway in the next 24 hours Objective - Vital Signs Vital signs: Vital Signs Temp 98.4 F 12/15/16 15:00 Pulse 79 12/15/16 16:00 Resp 20 12/15/16 16:00 BP 127/53 12/15/16 15:00 Pulse Ox 94 L 12/15/16 15:00 Intake & Output 12/14/16 12/15/16 12/15/16 18:59 06:59 18:59 Intake Total 2300 100 1770 Balance 2300 100 1770 Intake: Intake, IV Titration 700 150 Amount Levofloxacin 750Mg-D5w 100 150 Pmx 750 mg In Dextrose/ Water 1 150ml.bag @ 100 mls/hr IVPB Q48H [facility] Rx#: [id number] Sodium Chloride 0.9% 1, 600 000 ml @ 100 mls/hr IV . Q10H [facility] Rx#:[id number] Oral [id number] Other: Voiding Method Bedpan Bedpan Toilet Diaper Diaper Incontinent # Voids 3 2 3 # Bowel Movements 1 1 - Labs CBC & Chem 7: 12/14/16 07:03 12/15/16 07:43 Labs: Abnormal Lab Results - Last 24 Hours (Table) 12/15/16 Range/Units 07:43 Carbon Dioxide 19 L (22-30) mmol/L Glucose 112 H (74-99) mg/dL Microbiology - Last 24 Hours (Table) 12/13/16 10:55 Blood Culture - Preliminary Blood No Growth after 48 hours 12/13/16 11:43 Urine Culture - Final Urine,Voided
[2016-12-15] MEDS: APIXABAN 2.5 MG TABLET PO SCH (21:16)
[2016-12-15] MEDS: HYDROcodone/APAP 5-325MG 1 EACH TAB PO PRN (21:16)
[2016-12-16 08:04] VITALS: BP 165/84; PULSE 80; TEMP 97.4
[2016-12-16] MEDS ORDERED: LEVOFLOXACIN 750MG-D5W PMX 750 MG in DEXTROSE/WATER 1 150ML.BAG IVPB SCH (09:00)
[2016-12-16] MEDS: amLODIPine 10 MG TAB PO SCH (09:09)
[2016-12-16] MEDS: CARVEDILOL 12.5 MG TAB PO SCH (09:09)
[2016-12-16] MEDS: LISINOPRIL 10 MG TAB PO SCH (09:09)
[2016-12-16] MEDS: PANTOPRAZOLE 40 MG TABLET PO SCH (09:09)
[2016-12-16] MEDS: EZETIMIBE 10 MG TAB PO SCH (09:09)
[2016-12-16] MEDS: ISOSORBIDE MONONITRATE ER 30 MG TAB.ER.24H PO SCH (09:09)
[2016-12-16] MEDS: APIXABAN 2.5 MG TABLET PO SCH (09:09)
[2016-12-16] MEDS: HYDROcodone/APAP 5-325MG 1 EACH TAB PO PRN (09:09)
[2016-12-16] MEDS: ASPIRIN 81 MG CHEW PO SCH (09:09)
--- NOTE | 2016-12-16 09:44 | P.CRDCN ---
History of Present Illness Consult date: 12/15/16 History of present illness: This is a 86-year-old pleasant female. Past medical history significant for CAD multiple stents last being 2012, CABG 2010, hypertension, hyperlipidemia and GERD. She is currently being treated for pyelonephritis on IV Levaquin. We have been asked to see this patient in consultation because this morning nurse noticed the patient was in a rapid ventricular rate. An EKG was obtained and the patient was found to be in atrial fibrillation with a rate of 147. They gave her ordered dose of carvedilol and she subsequently converted to a normal sinus mechanism. She follows regularly with Dr. Toscano in the office. She has no documented history of atrial fibrillation. She denies any chest pain, shortness of breath, dizziness or diaphoresis during this episode. She states thinking back she does recall having an episode of shortness of breath on Monday that lasted for approximately 5-10 minutes. Hemoglobin 11.7, potassium 4.2, magnesium 2.0, TSH 2.28, BUN and 13 creatinine 0.75 with a GFR greater than 60, creatinine clearance 29. Review of Systems REVIEW OF SYSTEMS: Patient denies any chest discomfort. No shortness of breath. No diaphoresis. Denies headache, dizziness, blurred vision, double vision. No dyspnea on exertion. Patient denies any stomach discomfort. No nausea, vomiting. No hematochezia. No hematemesis. Denies any black stools or blood in his stools. No syncope. No palpitations. No cough. No recent fever or chills. No muscle weakness or numbness. Complains of bilateral lower back pain. Past Medical History Past Medical History: Coronary Artery Disease (CAD), Chest Pain / Angina, CVA/ TIA, GERD/Reflux, Hyperlipidemia, Hypertension, Myocardial Infarction ([place]), Osteoarthritis (OA), Pneumonia Additional Past Medical History / Comment(s): uti, tia age 50,pvd,bronchitis, sinus p[roblems,constipation,stomach ulcers years ago, incont of urine, chronic back pain. Last Myocardial Infarction Date:: 2011 History of Any Multi-Drug Resistant Organisms: None Reported Past Surgical History: Appendectomy, Coronary Bypass/CABG, Heart Catheterization , Heart Catheterization With Stent Additional Past Surgical History / Comment(s): marilou illiac stents 2013(per [facility]), 2 cardiac stents, marilou cataracts,daughter stated pt had a 6 vessel cabg 2010, Past Anesthesia/Blood Transfusion Reactions: No Reported Reaction Date of Last Stent Placement:: 2012 Smoking Status: Never smoker - Past Family History Mother Family Medical History: Cancer Father Family Medical History: Myocardial Infarction ([place]) Additional Family Medical History / Comment(s): lead poisoning from painting cars Medications and Allergies Home Medications Medication Instructions Recorded Confirmed Type Carvedilol [Coreg] 12.5 mg PO BID 04/29/16 12/13/16 History Isosorbide Mononitrate ER [Imdur] 30 mg PO DAILY 04/29/16 12/13/16 History Omeprazole [PriLOSEC] 20 mg PO BID 04/29/16 12/13/16 History amLODIPine BESYLATE [Norvasc] 10 mg PO DAILY 04/29/16 12/13/16 History Aspirin EC [Ecotrin Low Dose] 81 mg PO DAILY 12/13/16 12/13/16 History Clopidogrel [Plavix] 75 mg PO DAILY 12/13/16 12/13/16 History Ezetimibe [Zetia] 10 mg PO DAILY 12/13/16 12/13/16 History Lisinopril [Prinivil] 10 mg PO BID 12/13/16 12/13/16 History Allergies Allergy/AdvReac Type Severity Reaction Status Date / Time sulfamethoxazole Allergy Rash/Hives Verified 12/13/16 10:31 [From Bactrim] trimethoprim [From Bactrim] Allergy Rash/Hives Verified 12/13/16 10:31 amoxicillin [From Augmentin] AdvReac Nausea & Verified 12/13/16 10:31 Vomiting & Diarrhea clavulanic acid AdvReac Nausea & Verified 12/13/16 10:31 [From Augmentin] Vomiting & Diarrhea Physical Exam Vitals: Vital Signs Temp Pulse Resp BP Pulse Ox 12/15/16 08:50 83 18 12/15/16 08:46 82 18 129/80 94 L 12/15/16 08:00 147 H 18 12/15/16 07:25 100 F H 130 H 18 152/81 94 L 12/14/16 21:30 98.1 F 82 16 159/85 94 L 12/14/16 20:26 84 152/73 92 L 12/14/16 16:04 98.1 F 65 16 120/72 96 12/14/16 15:00 97.6 F 62 16 118/65 93 L Intake and Output 12/14/16 12/15/16 12/15/16 22:59 06:59 14:59 Intake Total 100 Balance 100 Intake: Oral 100 Other: Voiding Method Bedpan Bedpan Toilet Diaper Diaper # Voids 2 # Bowel Movements 1 GENERAL: This is a 86-year-old female in no apparent distress at the time of my examination. HEENT: Head is atraumatic, normocephalic. Pupils are equal, round. Sclerae anicteric. Conjunctivae are clear. Mucous membranes of the mouth are moist. Neck is supple. There is no jugular venous distention. No carotid bruit is heard. LUNGS: Clear to auscultation no wheezes, rales or rhonchi. No chest wall tenderness is noted on palpation or with deep breathing. HEART: Regular rate and rhythm without murmurs, rubs or gallops. S1 and S2 heard. ABDOMEN: Soft, nontender. Bowel sounds are heard. No organomegaly noted. Positive CVA tenderness. EXTREMITIES: 2+ peripheral pulses with no evidence of peripheral edema and no calf tenderness noted. NEUROLOGIC: Patient is awake, alert and oriented x3. Results 12/14/16 07:03 12/15/16 07:43 Cardiac Enzymes 12/15/16 Range/Units 07:43 AST 18 (14-36) U/L Comprehensive Metabolic Panel 12/15/16 Range/Units 07:43 Sodium 138 (137-145) mmol/L Potassium 4.2 (3.5-5.1) mmol/L Chloride 106 (98-107) mmol/L Carbon Dioxide 19 L (22-30) mmol/L BUN 13 (7-17) mg/dL Creatinine 0.75 (0.52-1.04) mg/dL Glucose 112 H (74-99) mg/dL Calcium 8.7 (8.4-10.2) mg/dL Unconjugated Bilirubin 0.3 (0.0-1.1) mg/dL AST 18 (14-36) U/L ALT 30 (9-52) U/L Alkaline Phosphatase 77 (38-126) U/L Total Protein 6.7 (6.3-8.2) g/dL Albumin 3.6 (3.5-5.0) g/dL Current Medications Generic Name Dose Route Start Last Admin Trade Name Freq PRN Reason Stop Dose Admin Acetaminophen 650 mg 12/13/16 12:48 Tylenol Tab PO Q6HR PRN Mild Pain or Fever > 100.5 Hydrocodone Bitart/Acetaminophen 1 each 12/13/16 12:48 12/14/16 22:28 Sherwood 5-325 PO 1 each Q4HR PRN Administration Moderate Pain Amlodipine Besylate 10 mg 12/14/16 09:00 12/15/16 08:04 Norvasc PO 10 mg DAILY [facility] Administration Apixaban 2.5 mg 12/15/16 21:00 Eliquis PO BID [facility] Aspirin 81 mg 12/14/16 09:00 12/15/16 08:04 Aspirin PO 81 mg DAILY [facility] Administration Carvedilol 12.5 mg 12/13/16 17:30 12/15/16 07:54 Coreg PO 12.5 mg BID-W/MEALS R[facility] Administration Ezetimibe 10 mg 12/14/16 09:00 12/15/16 08:04 Zetia PO 10 mg DAILY [facility] Administration Enoxaparin Sodium 40 mg 12/14/16 09:00 12/15/16 08:04 Lovenox SQ 12/15/16 21:00 40 mg DAILY [facility] Administration Hydromorphone HCl 0.5 mg 12/13/16 12:48 Dilaudid IV Q3HR PRN Severe Pain Levofloxacin 750 mg/ IV 150 mls @ 100 mls/hr 12/16/16 09:00 Solution IVPB Q48H [facility] Isosorbide Mononitrate 30 mg 12/14/16 09:00 12/15/16 08:04 Imdur PO 30 mg DAILY [facility] Administration Lisinopril 10 mg 12/13/16 21:00 12/15/16 08:04 Zestril PO 10 mg BID [facility] Administration Naloxone HCl 0.2 mg 12/13/16 12:48 Narcan IV Q2M PRN Opioid Reversal Ondansetron HCl 4 mg 12/13/16 12:48 Zofran IVP Q8HR PRN Nausea And Vomiting Pantoprazole Sodium 40 mg 12/13/16 17:30 12/15/16 08:04 Protonix PO 40 mg AC-BID [facility] Administration Intake and Output 09/06/17 09/07/17 09/07/17 22:59 06:59 14:59 Intake Total 100 Balance 100 Intake: Oral 100 Other: Voiding Method Bedpan Bedpan Toilet Diaper Diaper # Voids 2 # Bowel Movements 1 12/14/16 07:03 12/15/16 07:43 EKG Interpretations (text) EKG this morning indicates atrial fibrillation with a rate of 147 bpm. Telemetry tracings that start at 820 this morning indicate the patient is in a normal sinus mechanism with first-degree AV block and heart rate in the 80s. Assessment and Plan Plan: ASSESSMENT 1. New onset paroxysmal atrial fibrillation 2. History of CAD with multiple stents 3. History of CABG 4. Essential hypertension 5. Hyperlipidemia PLAN We will discontinue Plavix at this time since his been over one year since recent stenting. Continue current dose of carvedilol and aspirin as previously prescribed. We'll add Ellquis 2.5 mg by mouth twice a day. Obtain echocardiogram to assess for LV function. Further recommendations will be based upon clinical course. Thank you kindly for this consultation. Nurse Practitioner note has been reviewed, I agree with a documented findings and plan of care. Patient was seen and examined.
--- NOTE | 2016-12-16 12:47 | P.DS ---
Providers Date of admission: 12/13/16 12:48 Attending physician: Yonatan Yip MD Consults: 12/15/16 08:42 Consult Physician Urgent Consulting Provider: Óscar Toscano Consult Reason/Comments: Episode of A-Fib, RVR Do you want consulting provider notified?: Yes Primary care physician: Stated None Hospital Course: This 86-year-old female that presents to the hospital with progressive worsening weakness. Patient apparently was noted to have clinical pyelonephritis due to flank pain and a UA that was abnormal with other symptoms patient was treated with ciprofloxacin for 10 days. Patient's last dose was 2 days prior to the day of admission. Over the period of her treatment patient has not been active and has been bedridden. At this time there is some concern for patient continued to have symptoms of flank pain. Denies having any nausea vomiting abdominal pain other than the flank pain is described no urinary urgency or frequency is discussed. Her graft patient apparently has also been unsteady for the last 2 days and scaling the hospital seeking for further help. UA in the emergency room was not impressive. EKG shows sinus rhythm with first AV block and Q waves in the anteroseptal leads. At the time of my evaluation patient states that she is slightly feeling better. States that her oral intake has also been diminished over the same period of time Denies having any diarrhea lower extremity edema chest pain difficulty breathing headaches blurry vision and nausea and vomiting 12/14/2016 White count has normalized. Repeat chest x-ray does not show an underlying pneumonic infiltrate Patient states that she feels slightly better however continues to have generalized aches. 12/15/2016 He shouldn't appears to be in better spirits. However apparently patient went into a brief episode of atrial fibrillation with rapid ventricular rate. Patient denies feeling any chest pain palpitations at that time however returned to normal sinus rhythm without any intervention Review of systems 14 point review of systems done nonpertinent was mentionable Physical exam Gen. appearance oriented 3 in no distress Neck is supple no JVD Lungs good air movement clear to auscultation no rhonchi or wheezing or crackles. Heart S1-S2 heard regular rate and rhythm no murmurs appreciated Abdomen is soft flank pain is appreciated on the right side no suprapubic tenderness noted no guarding rigidity no organomegaly Neurologically cranial nerves II-12 grossly intact no focal motor or sensory deficits noted Skin no abnormalities appreciated Assessment and plan #1 sepsis likely due to pyelonephritis, however patient's urinalysis sterile as patient was partially treated. However also suspect an abnormality in the left lower lobe of the lung. No. 2 history of CAD #3 essential hypertension #4 deconditioning #5 dyslipidemia #6 new-onset with rapid ventricular rate currently in normal sinus rhythm 7. right shoulder supraspinatus tendonitis Plan asa, plavix PT [facility] in a stable condition levaquin for 5 days Patient Condition at Discharge: Fair Plan - Discharge Summary New Discharge Prescriptions: New Apixaban [Eliquis] 2.5 mg PO BID tab Levofloxacin [Levaquin] 500 mg PO DAILY #5 tab Continue Omeprazole [PriLOSEC] 20 mg PO BID Isosorbide Mononitrate ER [Imdur] 30 mg PO DAILY Carvedilol [Coreg*] 12.5 mg PO BID amLODIPine BESYLATE [Norvasc] 10 mg PO DAILY Lisinopril [Prinivil] 10 mg PO BID Ezetimibe [Zetia] 10 mg PO DAILY Aspirin EC [Ecotrin Low Dose] 81 mg PO DAILY Discontinued Clopidogrel [Plavix] 75 mg PO DAILY Discharge Medication List Carvedilol [Coreg*] 12.5 mg PO BID 04/29/16 [History] Isosorbide Mononitrate ER [Imdur] 30 mg PO DAILY 04/29/16 [History] Omeprazole [PriLOSEC] 20 mg PO BID 04/29/16 [History] amLODIPine BESYLATE [Norvasc] 10 mg PO DAILY 04/29/16 [History] Aspirin EC [Ecotrin Low Dose] 81 mg PO DAILY 12/13/16 [History] Ezetimibe [Zetia] 10 mg PO DAILY 12/13/16 [History] Lisinopril [Prinivil] 10 mg PO BID 12/13/16 [History] Apixaban [Eliquis] 2.5 mg PO BID tab 12/16/16 [Rx] Levofloxacin [Levaquin] 500 mg PO DAILY #5 tab 12/16/16 [Rx] Follow up Appointment(s)/Referral(s): Sirisha Carlin MD [Medical Doctor] - 1-2 days Discharge Disposition: TRANSFER TO SNF/ECF
--- NOTE | 2016-12-16 13:02 | P.PN ---
Subjective This is an 86-year-old female who had an episode of atrial fibrillation with rapid ventricular rate yesterday. This was a new diagnosis at that time. She was already on carvedilol and that should be continued at current dose. We started Eliquis at decreased dose due to advanced age. Case management is currently working on coverage for this new prescription. Pt is seen and exammined today resting in bed with family in the room. She denies chest pain, sob, palpitations, dizziness or diaphoresis. She has had no bleeding or syncope since starting Eliquis yesterday. She is currently sinus mechanism on telemetry with a controlled ventricular rate. Objective - Vital Signs Vital signs: Vital Signs Temp 97.4 F L 12/16/16 08:01 Pulse 80 12/16/16 08:01 Resp 20 12/16/16 08:01 BP 165/84 12/16/16 08:01 Pulse Ox 93 L 12/16/16 09:02 Intake & Output 12/15/16 12/16/16 12/16/16 18:59 06:59 18:59 Intake Total 1770 240 Balance 1770 240 Intake: Intake, IV Titration 150 Amount Levofloxacin 750Mg-D5w 150 Pmx 750 mg In Dextrose/ Water 1 150ml.bag @ 100 mls/hr IVPB Q48H [facility] Rx#: [id number] Oral 1620 240 Other: Voiding Method Bedside Commode Bedside Commode # Voids 3 1 # Bowel Movements 1 - Exam GENERAL: Well-appearing, well-nourished and in no acute distress. NECK: Supple without JVD or thyromegaly. LUNGS: Breath sounds clear to auscultation bilaterally. Respiration equal and unlabored. No wheezes, rales or rhonchi. HEART: Regular rate and rhythm without murmurs, rubs or gallops. S1 and S2 heard. EXTREMITIES: Normal range of motion, no edema. No clubbing or cyanosis. Peripheral pulses intact and strong. - Labs CBC & Chem 7: 12/14/16 07:03 12/15/16 07:43 Labs: Microbiology - Last 24 Hours (Table) 12/13/16 10:55 Blood Culture - Preliminary Blood No Growth after 48 hours Assessment and Plan Plan: ASSESSMENT 1. New onset paroxysmal atrial fibrillation 2. History of CAD with multiple stents 3. History of CABG 4. Essential hypertension 5. Hyperlipidemia PLAN Pt is currently in sinus mechanism with a controlled ventricular rate. From a cardiac standpoint she is stable for discharge home with new prescription for Eliquis. She should follow up with Dr. Toscano in 2 weeks time. Please feel free to call us with any further questions or needs throughout this admission. Nurse Practitioner note has been reviewed, I agree with a documented findings and plan of care. Patient was seen and examined.
== END 2016-12-16 14:00 | DRG 872 ==
LOC: EC 10:20 → 5MS5E 12:48
PROVIDERS: ADMIT Internal Medicine; ATTEND Internal Medicine
DX: A41.9 Sepsis, unspecified organism (principal); I48.0 Paroxysmal atrial fibrillation; I73.9 Peripheral vascular disease, unspecified; N12 Tubulo-interstitial nephritis, not specified as acute or chronic; I10 Essential (primary) hypertension; E78.5 Hyperlipidemia, unspecified; I25.10 Atherosclerotic heart disease of native coronary artery without angina pectoris; I25.2 Old myocardial infarction; I44.0 Atrioventricular block, first degree; K21.9 Gastro-esophageal reflux disease without esophagitis; M77.9 Enthesopathy, unspecified; Z79.02 Long term (current) use of antithrombotics/antiplatelets; Z79.899 Other long term (current) drug therapy; Z82.49 Family history of ischemic heart disease and other diseases of the circulatory system; Z86.73 Personal history of transient ischemic attack (TIA), and cerebral infarction without residual deficits; Z87.11 Personal history of peptic ulcer disease; Z95.1 Presence of aortocoronary bypass graft; Z95.5 Presence of coronary angioplasty implant and graft; Z88.2 Allergy status to sulfonamides; R91.8 Other nonspecific abnormal finding of lung field
CPT/HCPCS: 36415; 71020; 80053; 81001; 82248; 82550; 82553; 83735; 84100; 84443; 84484; 85025; 85610; 85730; 87040; 87086; 93005; 93306; 94760; 96361; 96365; 96375; 99285